=== PATIENT | male | born 1990 | race African-American/Black ===

== ENCOUNTER 2016-09-08 02:56 | Emergency (ER) | payer SELFPAY ==
[~2016-09-08] VITALS: Ht 193 cm; Wt 96.4 kg
[2016-09-08 03:02] VITALS: TEMP 36.7; Ht 193 cm; Wt 96.4 kg
--- NOTE | 2016-09-08 03:13 | EMERGENCY ROOM VISIT NOTE ---
History Report prepared by Scribe: Jorge Alberto Baird Under the Supervision of: Dr. Vikas Robles D.O. First contact with patient: 03:05 Chief Complaint: ALLERGIC REACTION Stated Complaint: ALLERGIC REACTION History of Present Illness The patient is a 25 year old male who presents to the Emergency Room with a possible acute allergic reaction. The patient has a peanut allergy. 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 He took 2 Zantac afterwards. The patient denies any breathing problems, breakouts, or trouble swallowing. The patient has experienced facial swelling with past allergic reactions. Source of History: patient Onset: apporximately 40 minutes CANDLE MOLDER Position: other (global) Quality: other (possible allergic reaction) Timing: other (acute) Associated Symptoms: No SOB, No rash Review of Systems See HPI for pertinent positives and negatives. A total of ten systems were reviewed and were otherwise negative. Past Medical & Surgical Medical Problems: (1) Peanut allergy Family History No pertinent family history Social History Smoking Status: Never Smoker Marital Status: in relationship Allergies Uncoded Allergies: PEANUTS (Allergy, Intermediate, swelling, 09/08/16) Physical Exam Vital Signs Date Time Temp Pulse Resp B/P Pulse Ox O2 Delivery O2 Flow Rate FiO2 09/08/16 03:02 36.7 73 18 167/95 98 Room Air Physical Exam GENERAL: Awake, alert, well-appearing, in no distress HENT: Normocephalic, atraumatic. Oropharynx unremarkable. EYES: Normal conjunctiva. Sclera non-icteric. NECK: Supple. No nuchal rigidity. FROM. No JVD. RESPIRATORY: Clear to auscultation. CARDIAC: Regular rate, normal rhythm. Extremities warm and well perfused. Pulses equal. ABDOMEN: Soft, non-distended. No tenderness to palpation. No rebound or guarding. No masses. RECTAL: Deferred. MUSCULOSKELETAL: Chest examination reveals no tenderness. The back is symmetrical on inspection without obvious abnormality. There is no CVA tenderness to palpation. No joint edema. LOWER EXTREMITIES: Calves are equal size bilaterally and non-tender. No edema. No discoloration. NEURO: Normal sensorium. No sensory or motor deficits noted. SKIN: No rash or jaundice noted. Medical Decision & Procedures Medications Administered Medications (Trade) Dose Ordered Sig/Cezar Route Start Time Stop Time Status Last Admin Dose Admin Prednisone (PredniSONE TAB) 60 mg NOW STAT PO 09/08/16 03:09 09/08/16 03:11 DC 09/08/16 03:15 60 MG Diphenhydramine HCl (Benadryl Cap) 50 mg NOW ONCE PO 09/08/16 03:15 09/08/16 03:16 DC 09/08/16 03:15 50 MG ED Course 0307: The patient was evaluated in room A11b. A complete history and physical exam was performed. 0309: Prednisone 60 mg PO. 0315: Benadryl 50 mg PO. 0340: I reevaluated the patient. Discussed results and discharge instructions: He verbalized understanding and agreement. The patient is ready for discharge. Medical Decision Differential diagnosis includes allergic reaction, urticaria. Impression Primary Impression: Allergic reaction Scribe Attestation The scribe's documentation has been prepared under my direction and personally reviewed by me in its entirety. I confirm that the note above accurately reflects all work, treatment, procedures, and medical decision making performed by me. Departure Information Dispostion Home / Self-Care Prescriptions Prednisone (Prednisone) 20 Mg Tab 0 PO DAILY, #14 TAB 3 TABS DAILY FOR 2 DAYS, THEN 2 TABS DAILY FOR 2 DAYS, THEN 1 TAB DAILY FOR 2 DAYS, THEN 1/2 TAB DAILY FOR 2 DAYS. Prov: Vikas Robles, DO 09/08/16 Referrals No Doctor, Assigned (PCP) Forms HOME CARE DOCUMENTATION FORM, IMPORTANT VISIT INFORMATION Patient Instructions ED Allergic React Food, My [facility] Problem Qualifiers Primary Impression: Allergic reaction Encounter type: initial encounter Qualified Codes: T78.40XA - Allergy, unspecified, initial encounter
[2016-09-08] MEDS ORDERED: PRED20TA PO (03:36)
[2016-09-08 03:54] VITALS: BP 158/76; PULSE 78; O2SAT 98
== END 2016-09-08 03:55 | disposition home or self-care (01) ==
LOC: C.EDB 02:57 → C.EDA 03:55
DX: T78.40XA Allergy, unspecified, initial encounter (principal); X58.XXXA Exposure to other specified factors, initial encounter; Z91.010 Allergy to peanuts